=== PATIENT | female | born 1995 | race Caucasian/White ===

== ENCOUNTER 2018-07-31 15:35 | Observation (INO) ==
[2018-07-31 15:59] LABS: Basophils % 0.1 % (0.1-2.0); Eosinophils # 0.1 K/mm3 (0.0-0.4); Eosinophils % 0.8 % (0.1-12.0); Hematocrit 46.9 % (37.0-47.0); Hemoglobin 14.3 g/dL (12.2-16.2); Lymphocytes # 1.4 K/mm3 (0.7-4.5); Lymphocytes % 11.1 % (10-50); Mean Corpuscular HGB Conc 30.6 g/dL (31.8-35.4); Mean Corpuscular Hemoglobin 29.5 pg (27.0-31.2); Mean Corpuscular Volume 96.6 fl (81-99); Mean Platelet Volume 10.3 fl (7.4-10.4); Monocytes # 0.4 K/mm3 (0.1-1.0); Monocytes % 3.3 % (1.7-9.3); Neutrophils # 10.3 K/mm3 (1.8-7.8); Neutrophils % 84.6 % (37.0-80.0); Platelet Count 150 K/mm3 (142-424); Red Blood Count 4.85 M/mm3 (4.20-5.40); Red Cell Distribution Width 13.9 % (11.5-17.5); White Blood Count 12.1 K/mm3 (4.8-10.8)
--- NOTE | 2018-07-31 16:08 | Emergency Department Note ---
ED Disposition Clinical Impression: Nausea & vomiting, Intractable nausea and vomiting Disposition: Still a Patient Condition on Discharge: Fair Instructions: DI for Diarrhea and Traveler's Diarrhea -- Adult, DI for Diarrhea and Traveler's Diarrhea -- Child, DI for Nausea -- Adult, DI for Nausea -- Child Referrals: Provider,Referral, [Primary Care Provider] - - Critical Care Critical Care Time: No Attestation: On 07/31/18, the high probability of a clinically significant, sudden or life threatening deterioration of the following system(s) required my full and direct attention, intervention and personal management. The time I documented below is in addition to time spent performing reported procedures but includes the following listed in this critical care notation. Medical Decision Making - Mundo Inquiry Pt receiving controlled substance: No Mundo was queried for this patient: No Vital Signs: 07/31/18 15:31 07/31/18 16:01 07/31/18 16:30 Temperature 98.7 F Temperature Source Oral Pulse Rate [Right Brachial] 73 80 76 Respiratory Rate 15 Blood Pressure [Right Arm] 93/60 L 98/69 L 106/74 L Blood Pressure Mean [Right Arm] 71 78 84 Blood Pressure Source [Right Arm] Automatic Cuff Automatic Cuff Blood Pressure Position [Right Arm] Sitting Supine 02 Sat by Pulse Oximetry 100 Oxygen Delivery Method Room Air - Lab Data Lab Results 07/31/18 15:39: WBC 12.1 H, RBC 4.85, Hgb 14.3, Hct 46.9, MCV 96.6, MCH 29.5, MCHC 30.6 L, RDW 13.9, Plt Count 150, MPV 10.3, Neut % (Auto) 84.6 H, Lymph % (Auto) 11.1, [facility] [facility] % (Auto) 3.3, Eos % (Auto) 0.8, Baso % (Auto) 0.1, Neut # (Auto) 10.3 H, Lymph # (Auto) 1.4, [facility] # (Auto) 0.4, Eos # (Auto) 0.1, Baso # (Auto) 0.0 07/31/18 15:39: Sodium 140, Potassium 3.9, Chloride 103, Carbon Dioxide 25, Anion Gap 15.9 H, BUN 10, Creatinine 0.79, Estimated Creat Clear 94, Estimated GFR 89, Est GFR ( Amer) 108, Glucose 118 H, Calcium 9.3, Total Bilirubin 0.6, AST 16, ALT 13, Alkaline Phosphatase 75, Total Protein 8.2, Albumin 4.6, Globulin 3.6 H, Albumin/Globulin Ratio 1.3, Amylase 66, Lipase 162 07/31/18 15:39: Serum HCG, Qual Negative 07/31/18 15:39: Troponin I < 0.02 07/31/18 15:39: D-Dimer < 100 07/31/18 15:39: B-Natriuretic Peptide 11 Result diagrams: 07/31/18 15:39 07/31/18 15:39 Orders (Tests/Meds): ED MEDICATIONS Generic Name Dose Route Start Last Admin Trade Name Freq PRN Reason Stop Dose Admin Sodium Chloride 1,000 mls @ 999 mls/hr 07/31/18 15:45 07/31/18 15:44 Sod Chlor 0.9% 1000ml Bag IV 07/31/18 16:45 999 mls/hr .Q1H1M DEZ Administration Discontinued Medications Generic Name Dose Route Start Last Admin Trade Name Freq PRN Reason Stop Dose Admin Belladonna Alkaloids 60 ml 07/31/18 16:03 07/31/18 17:01 Gi Cocktail 60ml Udc PO 07/31/18 16:04 60 ml ONCE ONE Administration Famotidine 20 mg 07/31/18 16:03 07/31/18 16:58 Pepcid 20mg/2ml Vial IV 07/31/18 16:04 20 mg ONCE ONE Administration Ondansetron HCl 4 mg 07/31/18 15:42 07/31/18 15:44 Zofran 4mg/2ml Vial IV 07/31/18 15:43 4 mg ONCE ONE Administration Promethazine HCl 12.5 mg 07/31/18 16:03 07/31/18 16:58 Phenergan 25mg/Ml 1ml Vial IV 07/31/18 16:04 12.5 mg ONCE ONE Administration Sodium Chloride 25 ml 07/31/18 16:03 07/31/18 16:59 Sod Chlor 0.9% 25ml Bag IV 07/31/18 16:04 25 ml ONCE ONE Administration ORDERS Category Date Time Status Acute abdomen XR series [XR acute abdomen series] Stat Exams 07/31/18 16:04 Taken Urinalysis and Microscopic Stat Lab 12/15/18 15:42 Ordered - Radiology Data #1 Image(s): Chest, Abdomen Image Reviewed: Yes I reviewed the patient's radiology image Preliminary Findings: Normal/NAD Medical Decision Narrative: 1600 patient received Zofran but she continues to have dry heaving so she was given IVF Phenergan and Pepcid underwent acute abdomen series that was was within normal limits. The patient continued to be nauseous unable to tolerate p.o. intake including her GI cocktail I spoke with Dr. 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 Fang she admitted for intractable nausea vomiting n.p.o. IV fluids and antiemetics.. Nausea/Vomiting/Diarrhea HPI - General Chief complaint: Nausea/Vomiting/Diarrhea Stated complaint: n/v/d Time Seen by Provider: 07/31/18 15:35 Mode of Arrival: EMS Limitations: No Limitations Description of Symptoms (Recalled from ER Triage Doc. 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 denied eating anything - History of Present Illness HPI Narrative: 22 years old white female smoker status post tubal ligation who developed sudden onset vomiting at 10 AM today. She denies having fever chills hematemesis coffee-ground emesis melanotic stool or bleeding per rectum. She denies having dysuria hematuria or frequency. She denies having diarrhea. Patient complains of a burning sensation across her chest is worse with vomiting and abdominal cramps during vomiting. Patient denies other family members were the same symptoms. She has 2 children. MD complaint: nausea, vomiting Onset (ago): hour(s) (7 hours.) Description of Vomiting: other (She is heaving in the ED with mucus-like material. ) Associated Abdominal Pain: No Quality: cramping Consistency: intermittent Relieving factors: other (Not vomiting) Exacerbating factors: vomiting Associated symptoms: nausea/vomiting, shortness of breath - Related Data Previous Rx's Medication Instructions Recorded Clindamycin HCl [Cleocin HCl] 150 mg PO Q6 #20 capsule 07/01/18 Ibuprofen [Ibuprofen 600mg Tab] 600 mg PO Q6HP PRN #20 tab 07/01/18 Allergies Allergy/AdvReac Type Severity Reaction Status Date / Time amoxicillin [AMOXICILLIN] Allergy Unknown Verified 07/01/18 12:28 [facility] History - Hepatitis A Screen Drug use history?: No High risk sexual behaviors?: No History of sexually transmitted infection?: No Currently employed?: No Childcare worker?: No Do you have indoor plumbing?: No Do you have electricity?: Yes Attestation statement:: This patient has been screened for Hepatitis A risk factors. - Social History Educational Level: Completed High School Smoking Status: Current every day smoker Tobacco Type: cigarettes Alcohol Intake: never Alcohol Intake Frequency:: holidays/special occasions only - Psychiatric History Expresses thoughts of harming self/others: None Suicide Plan Description: No Plan ROS Obtained: Yes All systems reviewed & no additional complaints Physical Exam - General General appearance: alert, in no apparent distress - Head Head exam: atraumatic, normocephalic, normal inspection - Eye Eye exam: Present: normal appearance, PERRL, EOMI - ENT ENT exam: Present: normal exam, normal oropharynx, mucous membranes moist, TM's normal bilaterally, normal external ear exam - Neck Neck exam: Present: normal inspection, full ROM, trachea midline. Absent: tenderness, meningismus, lymphadenopathy - Chest Chest inspection: Present: normal inspection, symmetric chest wall rise. Absent: tenderness - Respiratory Respiratory exam: Present: normal lung sounds bilaterally. Absent: respiratory distress, wheezes - Cardiovascular Cardiovascular exam: Present: regular rate, normal rhythm, normal heart sounds. Absent: JVD - Abdominal Exam Abdominal exam: Present: soft, tenderness, rigidity, normal bowel sounds, other (Mild diffuse abdominal tenderness with palpable cordlike structure along the colonic anatomical course and voluntary guarding. No focal tenderness no rebound or cross tenderness. ). Absent: distention, guarding, rebound, Giron's sign, tenderness at McBurney's Point - External exam: Present: normal external exam - Extremities Exam Extremities exam: Present: normal inspection, full ROM, normal capillary refill, other (Equal strong bilateral femoral pulse. ). Absent: tenderness, pedal edema, calf tenderness - Back Exam Back exam: Present: normal inspection. Absent: tenderness, CVA tenderness (R), CVA tenderness (L) - Neurological Exam Neurological exam: Present: alert, oriented X3, CN II-XII intact, motor sensory deficit, reflexes normal - Psychiatric Psychiatric exam: Present: normal affect, normal mood - Skin Skin exam: Present: warm, dry, intact, normal color - Lymphatic Lymphatic Findings: no adenopathy
[2018-07-31 16:09] LABS: Albumin Level 4.6 gm/dL (3.4-5.0); Albumin/Globulin Ratio 1.3 (1.1-1.8); Anion Gap 15.9 mEq/L (5-15); Bilirubin,Total 0.6 mg/dL (0.2-1.0); Calcium 9.3 mg/dL (8.5-10.1); Globulin 3.6 gm/dl (1.3-3.2); Potassium 3.9 mmoL/L (3.5-5.1); Total Protein,Serum 8.2 gm/dL (6.4-8.2)
[2018-08-01 06:41] LABS: Eosinophils % 0.4 % (0.1-12.0); Lymphocytes % 15.4 % (10-50); Mean Corpuscular HGB Conc 31.9 g/dL (31.8-35.4); Mean Corpuscular Hemoglobin 30.2 pg (27.0-31.2); Mean Corpuscular Volume 94.6 fl (81-99); Mean Platelet Volume 10.9 fl (7.4-10.4); Monocytes # 0.3 K/mm3 (0.1-1.0); Monocytes % 4.2 % (1.7-9.3); Neutrophils # 4.9 K/mm3 (1.8-7.8); Neutrophils % 79.9 % (37.0-80.0); Platelet Count 136 K/mm3 (142-424); Red Blood Count 4.02 M/mm3 (4.20-5.40); Red Cell Distribution Width 13.9 % (11.5-17.5); White Blood Count 6.1 K/mm3 (4.8-10.8)
[2018-08-01 06:46] LABS: Hemoglobin 12.1 g/dL (12.2-16.2)
[2018-08-01 06:53] LABS: Anion Gap 12.6 mEq/L (5-15); Potassium 3.6 mmoL/L (3.5-5.1)
[2018-08-01 06:59] LABS: Calcium 8.3 mg/dL (8.5-10.1)
--- NOTE | 2018-08-01 07:32 | H&P/Discharge Summary ---
General - General Admission date:: 07/31/18 Discharge date: 08/01/18 *Admission Date: 07/31/18 *Chief complaint: Vomiting *History of present illness: 22-year-old female who began vomiting yesterday afternoon with her last meal being hamburger and Indonesian fries. Family is not ill. Patient denies sick contacts. Upon presenting to the emergency department she had frequent vomiting and retching and despite use of antiemetics and fluids in the emergency department retching persisted. Patient was admitted for observation and IV fluids with treatment of intravenous antiemetics. She denies fevers or chills. She has not had any diarrhea. Her biggest complaint is discomfort in the chest from frequent vomiting [facility] History I have reviewed the patient's past medical history: Yes Other Surgeries: Yes: Tubal Ligation Amputation: No - *Social History Educational Level: Completed High School Smoking Status: Current every day smoker Tobacco Type: cigarettes Alcohol Intake: current Alcohol Intake Frequency:: holidays/special occasions only Occupational Status: employed - Psychiatric History Expresses thoughts of harming self/others: None Suicide Plan Description: No Plan *Family Hx:: No significant family history Review of Systems - Review of Systems Review of systems:: pertinent systems reviewed and negative unless documented below - Constitutional Denies body ache(s), Denies chills, Denies fever(s) - *Cardiovascular Denies chest pain at rest - *Respiratory Denies chest congestion, Denies cough, Denies shortness of breath - *Gastrointestinal Reports abdominal pain, Reports cramping, Reports heartburn, Reports vomiting, Denies coffee ground vomit, Denies vomiting blood - *Musculoskeletal Denies joint pain Exam Vital signs and Labs for Last 24 Hours: Temp Pulse Resp BP Pulse Ox 98.3 F 75 16 113/57 L 98 08/01/18 03:54 08/01/18 03:54 08/01/18 03:54 08/01/18 03:54 08/01/18 03:54 Laboratory Results - last 24 hr 07/31/18 15:39: WBC 12.1 H, RBC 4.85, Hgb 14.3, Hct 46.9, MCV 96.6, MCH 29.5, MCHC 30.6 L, RDW 13.9, Plt Count 150, MPV 10.3, Neut % (Auto) 84.6 H, Lymph % (Auto) 11.1, Craig % (Auto) 3.3, Eos % (Auto) 0.8, Baso % (Auto) 0.1, Neut # (Auto) 10.3 H, Lymph # (Auto) 1.4, Craig # (Auto) 0.4, Eos # (Auto) 0.1, Baso # (Auto) 0.0 07/31/18 15:39: Sodium 140, Potassium 3.9, Chloride 103, Carbon Dioxide 25, Anion Gap 15.9 H, BUN 10, Creatinine 0.79, Estimated Creat Clear 94, Estimated GFR 89, Est GFR ( Amer) 108, Glucose 118 H, Calcium 9.3, Total Bilirubin 0.6, AST 16, ALT 13, Alkaline Phosphatase 75, Total Protein 8.2, Albumin 4.6, Globulin 3.6 H, Albumin/Globulin Ratio 1.3, Amylase 66, Lipase 162 07/31/18 15:39: Serum HCG, Qual Negative 07/31/18 15:39: Troponin I < 0.02 07/31/18 15:39: D-Dimer < 100 07/31/18 15:39: B-Natriuretic Peptide 11 08/01/18 06:22: WBC 6.1 D, RBC 4.02 L, Hgb 12.1 L D, Hct 38.0, MCV 94.6, MCH 30.2, MCHC 31.9, RDW 13.9, Plt Count 136 L, MPV 10.9 H, Neut % (Auto) 79.9, Lymph % (Auto) 15.4, Craig % (Auto) 4.2, Eos % (Auto) 0.4, Baso % (Auto) 0.0 L, Neut # (Auto) 4.9, Lymph # (Auto) 1.0, Craig # (Auto) 0.3, Eos # (Auto) 0.0, Baso # (Auto) 0.0 08/01/18 06:22: Sodium 139, Potassium 3.6, Chloride 106, Carbon Dioxide 24, Anion Gap 12.6, BUN 6 L D, Creatinine 0.62 D, Estimated Creat Clear 112, Estimated GFR 118, Est GFR ( Amer) 143 D, Glucose 150 H D, Calcium 8.3 L D I & O for Last 24 hours: Intake & Output 12/13/07/30/18 07/31/18 08/01/18 11:59 11:59 11:59 11:59 Intake Total 1169 / 1169 Output Total 250 / 250 Balance 919 / 919 Weight 111 lb 7 oz Narrative: Patient is awake and alert. She is in no distress. Oropharynx is moist. Lungs are clear to auscultation. Heart has a regular rate and rhythm. Chest is nontender to palpation along the costochondral junctions. Abdomen is soft, nontender, nondistended. Bowel sounds are present. Patient has active range of motion in all extremities and no neurologic Hospital Course Hospital Course: As per our and given both Zofran and Phenergan as an antiemetic. Patient felt like Zofran was ineffective and while Phenergan mostly just made her drowsy and sleepy she at least did not vomit while she was asleep. On the morning of the diet was advanced to clear liquids. Patient was given IV Protonix and a GI cocktail for acid reflux type symptoms. When she was tolerating liquids patient was discharged to home. Results Labs on day of discharge: Labs from last 24 hours 08/01/18 08/01/18 07/31/18 06:22 06:22 15:39 WBC 6.1 D RBC 4.02 L Hgb 12.1 L D Hct 38.0 MCV 94.6 MCH 30.2 MCHC 31.9 RDW 13.9 Plt Count 136 L MPV 10.9 H Neut % (Auto) 79.9 Lymph % (Auto) 15.4 Craig % (Auto) 4.2 Eos % (Auto) 0.4 Baso % (Auto) 0.0 L Neut # (Auto) 4.9 Lymph # (Auto) 1.0 Craig # (Auto) 0.3 Eos # (Auto) 0.0 Baso # (Auto) 0.0 D-Dimer Sodium 139 Potassium 3.6 Chloride 106 Carbon Dioxide 24 Anion Gap 12.6 BUN 6 L D Creatinine 0.62 D Estimated Creat Clear 112 Estimated GFR 118 Est GFR ( Amer) 143 D Glucose 150 H D Calcium 8.3 L D Total Bilirubin AST ALT Alkaline Phosphatase Troponin I B-Natriuretic Peptide 11 Total Protein Albumin Globulin Albumin/Globulin Ratio Amylase Lipase Serum HCG, Qual 07/31/18 07/31/18 07/31/18 15:39 15:39 15:39 WBC RBC Hgb Hct MCV MCH MCHC RDW Plt Count MPV Neut % (Auto) Lymph % (Auto) Craig % (Auto) Eos % (Auto) Baso % (Auto) Neut # (Auto) Lymph # (Auto) Craig # (Auto) Eos # (Auto) Baso # (Auto) D-Dimer < 100 Sodium Potassium Chloride Carbon Dioxide Anion Gap BUN Creatinine Estimated Creat Clear Estimated GFR Est GFR ( Amer) Glucose Calcium Total Bilirubin AST ALT Alkaline Phosphatase Troponin I < 0.02 B-Natriuretic Peptide Total Protein Albumin Globulin Albumin/Globulin Ratio Amylase Lipase Serum HCG, Qual Negative 07/31/18 07/31/18 15:39 15:39 WBC 12.1 H RBC 4.85 Hgb 14.3 Hct 46.9 MCV 96.6 MCH 29.5 MCHC 30.6 L RDW 13.9 Plt Count 150 MPV 10.3 Neut % (Auto) 84.6 H Lymph % (Auto) 11.1 Craig % (Auto) 3.3 Eos % (Auto) 0.8 Baso % (Auto) 0.1 Neut # (Auto) 10.3 H Lymph # (Auto) 1.4 Craig # (Auto) 0.4 Eos # (Auto) 0.1 Baso # (Auto) 0.0 D-Dimer Sodium 140 Potassium 3.9 Chloride 103 Carbon Dioxide 25 Anion Gap 15.9 H BUN 10 Creatinine 0.79 Estimated Creat Clear 94 Estimated GFR 89 Est GFR ( Amer) 108 Glucose 118 H Calcium 9.3 Total Bilirubin 0.6 AST 16 ALT 13 Alkaline Phosphatase 75 Troponin I B-Natriuretic Peptide Total Protein 8.2 Albumin 4.6 Globulin 3.6 H Albumin/Globulin Ratio 1.3 Amylase 66 Lipase 162 Serum HCG, Qual Discharge Medications - Medications for Discharge Home Medication List at Discharge: No Action No Known Home Medications Disposition Disposition: Home, Self-Care
--- NOTE | 2018-08-01 15:33 | Pharmacy Consult Notes ---
[facility] Pharmacy VTE Monitoring - Patient Demographics Admission date: 07/31/18 Report Date: 08/01/18 Time: 15:33 Allergies/Adverse Reactions: Patient Allergies amoxicillin [AMOXICILLIN] Allergy (Unknown, Verified 07/01/18 12:28) Height: 1.65 m Weight: 50.547 kg Patient Problems: Current Active Problems Nausea & vomiting (Acute) Intractable nausea and vomiting (Acute) - VTE Risk Labs: VTE Related Lab Results Hgb 12.1 g/dL (12.2-16.2) L D 08/01/18 06:22 Hct 38.0 % (37.0-47.0) 08/01/18 06:22 Plt Count 136 K/mm3 (142-424) L 08/01/18 06:22 BUN 6 mg/dL (7-18) L D 08/01/18 06:22 Creatinine 0.62 mg/dL (0.55-1.02) D 08/01/18 06:22 Estimated Creat Clear 112 mL/min (50-200) 08/01/18 06:22 Was VTE Risk Assessment Performed: Yes VTE Score: 0 VTE Risk Level: Very Low Risk - Prophylaxis VTE Prophylaxis Ordered?: Yes Types of VTE Prophylaxis: TEDS Knee High Location of Applied Device: Bilateral Lower Extremeties
[2018-08-01 15:46] LABS: Microscopic, Urine URINE MICROSCOPIC (MICROSCOPIC)
[2018-08-01 15:47] LABS: Appearance,Urine SL CLOUDY (Clear); Bilirubin,Urine Negative (Negative); Blood, Urine Negative (Negative); Color,Urine YELLOW (Yellow); Glucose,Urine (UA) Negative (Negative); Ketones,Urine 1+ (Negative); Leukocyte Esterase,Urine Negative (Negative); Protein,Urine Negative (Negative); Urobilinogen,Urine 0.2 EU/dl (0.2)
[2018-08-01 15:55] LABS: Bacteria,Urine 2+ /lpf; Mucus,Urine 3+ /lpf
== END 2018-08-01 18:32 | disposition home or self-care (01) ==
LOC: ER 15:35 → 2ND 15:35
PROVIDERS: ADMIT Family Medicine; ATTEND Internal Medicine Adolescent Medicine

== ENCOUNTER 2018-09-21 13:28 | Observation (INO) ==
[2018-09-21 14:05] LABS: Basophils % 0.2 % (0.1-2.0); Eosinophils % 0.1 % (0.1-12.0); Hematocrit 44.5 % (37.0-47.0); Hemoglobin 14.2 g/dL (12.2-16.2); Lymphocytes # 1.6 K/mm3 (0.7-4.5); Lymphocytes % 12.4 % (10-50); Mean Corpuscular HGB Conc 31.9 g/dL (31.8-35.4); Mean Corpuscular Hemoglobin 30.6 pg (27.0-31.2); Mean Corpuscular Volume 95.9 fl (81-99); Mean Platelet Volume 9.7 fl (7.4-10.4); Monocytes # 0.3 K/mm3 (0.1-1.0); Monocytes % 2.2 % (1.7-9.3); Neutrophils # 10.8 K/mm3 (1.8-7.8); Neutrophils % 85.2 % (37.0-80.0); Platelet Count 246 K/mm3 (142-424); Red Blood Count 4.65 M/mm3 (4.20-5.40); Red Cell Distribution Width 14.5 % (11.5-17.5); White Blood Count 12.7 K/mm3 (4.8-10.8)
--- NOTE | 2018-09-21 14:10 | Emergency Department Note ---
ED Disposition Clinical Impression: Abdominal pain, generalized Vomiting Qualifiers: Vomiting type: unspecified Vomiting Intractability: intractable Nausea presence: with nausea Qualified Code(s): R11.2 - Nausea with vomiting, unspecified Disposition: Admitted as Observation Condition on Discharge: Fair Referrals: Provider,Referral, [Primary Care Provider] - - Critical Care Critical Care Time: No Attestation: On 09/21/18, the high probability of a clinically significant, sudden or life threatening deterioration of the following system(s) required my full and direct attention, intervention and personal management. The time I documented below is in addition to time spent performing reported procedures but includes the following listed in this critical care notation. Medical Decision Making - Mundo Inquiry Pt receiving controlled substance: No Vital Signs: 09/21/18 13:52 Temperature 97.5 F L Temperature Source Oral Pulse Rate [Right Brachial] 89 Respiratory Rate 17 Blood Pressure [Right Arm] 102/69 L Blood Pressure Mean [Right Arm] 80 Blood Pressure Source [Right Arm] Automatic Cuff Blood Pressure Position [Right Arm] Sitting 02 Sat by Pulse Oximetry 98 Oxygen Delivery Method Room Air - Lab Data Lab Results 09/21/18 14:00: WBC 12.7 H, RBC 4.65, Hgb 14.2, Hct 44.5, MCV 95.9, MCH 30.6, MCHC 31.9, RDW 14.5, Plt Count 246, MPV 9.7, Neut % (Auto) 85.2 H, Lymph % (Aut o) 12.4, [place] % (Auto) 2.2, Eos % (Auto) 0.1, Baso % (Auto) 0.2, Neut # (Auto) 10.8 H, Lymph # (Auto) 1.6, [place] # (Auto) 0.3, Eos # (Auto) 0.0, Baso # (Auto) 0.0, Total Counted 100, Neutrophils % (Manual) 86 H, Lymphocytes % (Manual) 11, Monocytes % (Manual) 3, Platelet Estimate Normal, RBC Morphology Normal 09/21/18 14:00: Sodium 143, Potassium 3.9, Chloride 102, Carbon Dioxide 29, Anion Gap 15.9 H, BUN 13, Creatinine 0.73, Estimated Creat Clear 94, Estimated GFR 98, Est GFR ( Amer) 119, Glucose 143 H, Calcium 9.2, Total Bilirubin 0.3, AST 8 L, ALT 13, Alkaline Phosphatase 71, Total Protein 8.2, Albumin 4.6, Globulin 3.6 H, Albumin/Globulin Ratio 1.3, Amylase 55, Lipase 125 09/21/18 14:00: Serum HCG, Qual Negative Result diagrams: 09/21/18 14:00 09/21/18 14:00 Orders (Tests/Meds): ED MEDICATIONS Generic Name Dose Route Start Last Admin Trade Name Freq PRN Reason Stop Dose Admin Sodium Chloride 1,000 mls @ 999 mls/hr 09/21/18 16:15 09/21/18 16:15 Sod Chlor 0.9% 1000ml Bag IV 09/21/18 17:15 999 mls/hr .Q1H1M DEZ Administration Discontinued Medications Generic Name Dose Route Start Last Admin Trade Name Freq PRN Reason Stop Dose Admin Famotidine 20 mg 09/21/18 14:33 09/21/18 15:24 Pepcid 20mg/2ml Vial IV 09/21/18 14:34 20 mg ONCE ONE Administration Sodium Chloride 1,000 mls @ 999 mls/hr 09/21/18 14:00 09/21/18 13:56 Sod Chlor 0.9% 1000ml Bag IV 09/21/18 15:00 999 mls/hr .Q1H1M DEZ Administration Ketorolac Tromethamine 30 mg 09/21/18 13:54 09/21/18 13:56 Toradol 30mg/Ml Vial IV 09/21/18 13:55 30 mg ONCE ONE Administration Ondansetron HCl 4 mg 09/21/18 13:54 09/21/18 13:56 Zofran 4mg/2ml Vial IV 09/21/18 13:55 4 mg ONCE ONE Administration Promethazine HCl 12.5 mg 09/21/18 14:24 09/21/18 14:27 Phenergan 25mg/Ml 1ml Vial IV 09/21/18 14:25 12.5 mg ONCE ONE Administration Promethazine HCl 12.5 mg 09/21/18 14:33 09/21/18 15:06 Phenergan 25mg/Ml 1ml Vial IV 09/21/18 14:34 12.5 mg ONCE ONE Administration Sodium Chloride 25 ml 09/21/18 14:24 09/21/18 14:27 Sod Chlor 0.9% 25ml Bag IV 09/21/18 14:25 25 ml ONCE ONE Administration Sodium Chloride 25 ml 09/21/18 14:33 09/21/18 15:06 Sod Chlor 0.9% 25ml Bag IV 09/21/18 14:34 25 ml ONCE ONE Administration Sodium Chloride 10 ml 09/21/18 15:28 09/21/18 15:29 Rad-Saline Flush 10ml Syringe IV 09/21/18 15:29 10 ml ONCE ONE Administration ORDERS Category Date Time Status Drug Screen,Urine Stat Lab 09/21/18 15:13 Ordered Urinalysis and Microscopic Stat Lab 09/21/18 13:54 Ordered - CT Data CT Scan: Abdomen, Pelvis Time Received: 15:[address] Reviewed: Yes: I have viewed the radiologist's interpretation Findings Narrative: IMPRESSION: 1. Possible ruptured right ovarian cyst with a small amount fluid in the pelvis. 2. Otherwise negative. Dictated By: Blayne Salas MD Signed By: <Electronically signed by Blayne Salas MD in OV> 09/21/18 1550 - US Data US Images: Gallbladder ED US Reviewed: Yes: I have viewed radiologist's interpretation Preliminary Findings: Normal/NAD - Physician Consults Physician Consulted: Pacheco Time: 16:30 Reason -: Admission Comment/Response: Agrees to admit the patient to the hospital. We discussed the patient's clinical information, including history, exam, laboratory and radiology results and ED course. Per hospital procedure, I will write temporary bridge inpatient orders on the patient. Specific orders requested by the admitting physician: Continue IV fluids and antiemetics - Reevaluation(s) Time: 16:00 Reevaluation #1: States no change in condition, no improvement. Has not yet urinated. General Adult HPI - General Chief complaint: Nausea/Vomiting/Diarrhea Stated complaint: vomiting weak Time Seen by Provider: 09/21/18 14:10 Mode of Arrival: Ambulatory Limitations: No Limitations Description of Symptoms (Recalled from ER Triage Doc. by RN): ABD PAIN AND VOMITING SINCE THIS MORNING; STATES THAT SHE HAS THIS OCCUR APPROX ONCE A MONTH, AND DESPITE TESTING NO ONE CAN FIND OUT WHAT'S WRONG WITH HER; ADDITIONALLY STATES SHE IS USUALLY ADMITTED - History of Present Illness HPI narrative: Complains of generalized abdominal pain and vomiting that started this morning. Denies fever or diarrhea. States this is been a recurrent problem for about 2 years. She says she has had previous evaluations, but does not remember what tests have been done. Does not remember scans or ultrasounds. She has been to this emergency room twice before, July 01 and July 31. On July [address] scan of her abdomen in the emergency department along with typical abdominal pain workup and was discharged. On July 31 she was admitted overnight. Patient says she recently moved to this area about a year ago. She was previously living in [place] and says that she had been to the emergency room there previously but had not been admitted. States that she has a previous history of endometriosis. She has had surgery to burn the endometriosis and has had a tubal ligation. Denies previous abdominal surgeries otherwise. She has Phenergan at home, took it today, but it did not help at all. - Related Data Previous Rx's Medication Instructions Recorded Promethazine HCl [Phenergan 25mg 25 mg PO Q6HP PRN #20 tablet 08/01/18 tab] Allergies Allergy/AdvReac Type Severity Reaction Status Date / Time amoxicillin [AMOXICILLIN] Allergy Unknown Verified 07/01/18 12:28 [facility] History - Hepatitis A Screen Drug use history?: No High risk sexual behaviors?: No History of sexually transmitted infection?: No Currently employed?: No Childcare worker?: No Do you have indoor plumbing?: Yes Do you have electricity?: Yes Attestation statement:: This patient has been screened for Hepatitis A risk factors. I have reviewed the patient's past medical history: Yes Other Surgeries: Yes: Tubal Ligation Amputation: No - Social History Educational Level: Completed High School Smoking Status: Unknown if ever smoked Tobacco Type: cigarettes Alcohol Intake: never Alcohol Intake Frequency:: holidays/special occasions only Occupational Status: employed - Psychiatric History Expresses thoughts of harming self/others: None Suicide Plan Description: No Plan Family Hx:: No significant family history ROS Obtained: Yes All systems reviewed & no additional complaints - Constitutional Constitutional: Denies fever(s), Denies weight loss - Gastrointestinal Gastrointestingal: Reports: abdominal pain, vomiting. Denies: diarrhea Physical Exam - General General appearance: alert Comment: Pale. Lips dry. - Head Head exam: atraumatic, normocephalic - Eye Eye exam: Present: normal appearance, PERRL, EOMI - ENT ENT exam: Present: mucous membranes dry - Neck Neck exam: Present: normal inspection, full ROM, trachea midline - Chest Chest inspection: Present: normal inspection, symmetric chest wall rise - Respiratory Respiratory exam: Present: normal lung sounds bilaterally. Absent: respiratory distress - Cardiovascular Cardiovascular exam: Present: regular rate, normal rhythm, normal heart sounds - Abdominal Exam Abdominal exam: Present: soft, tenderness (Generalized, but most tender in right upper quadrant), other (Scaphoid). Absent: distention, guarding, rebound, rigidity - Extremities Exam Extremities exam: Present: normal inspection, full ROM - Neurological Exam Neurological exam: Present: alert, oriented X3 - Psychiatric Psychiatric exam: Present: flat affect - Skin Skin exam: Present: warm, dry
[2018-09-21 14:17] LABS: Lymphocytes % 11 % (10-50); Monocytes % 3 % (2-9); Neutrophils % 86 % (42-76); RBC Morphology Normal; Total Cells Counted 100
[2018-09-21 14:18] LABS: Albumin Level 4.6 gm/dL (3.4-5.0); Albumin/Globulin Ratio 1.3 (1.1-1.8); Anion Gap 15.9 mEq/L (5-15); Bilirubin,Total 0.3 mg/dL (0.2-1.0); Calcium 9.2 mg/dL (8.5-10.1); Globulin 3.6 gm/dl (1.3-3.2); Potassium 3.9 mmoL/L (3.5-5.1); Total Protein,Serum 8.2 gm/dL (6.4-8.2)
--- NOTE | 2018-09-21 17:34 | History & Physical Report ---
*Admission Date: 09/21/18 *Chief complaint: Nausea and vomiting *History of present illness: Whit is a 22-year-old female with history of repeated episodes of nausea and vomiting seen twice over the past 3 months for similar presentation. She reports she began to have abdominal pain and vomiting starting this morning. Has been worked up significantly in the past with no specific diagnosis. Despite antiemetics and fluids in the ER, she has continued to have retching and nausea. Patient necessitating admission due to inability to keep down p.o. fluids. C/o generalized abdominal pain. Denies fever or diarrhea. States this is been a recurrent problem for about 2 years, since having her 17mo child. She says she has had previous evaluations, but does not remember what tests have been done. Does not remember scans or ultrasounds. She has been to this emergency room twice before, July 01 and July 31. On July [address] scan of her abdomen in the emergency department along with typical abdominal pain workup and was discharged. On July 31 she was admitted overnight. States that she has a previous history of endometriosis. She has had surgery to burn the endometriosis and has had a tubal ligation. Denies previous abdominal surgeries otherwise. She took Phenergan at home this morning with no benefit. Denies fever, chest pain, shortness of breath, confusion, diarrhea. [facility] History Medical History: Reports:: Asthma Have you ever received a pneumonia vaccine?: No Have you received a flu vaccine this season?: No Other Surgeries: Yes: Tubal Ligation Amputation: No - *Social History Educational Level: Completed High School Smoking Status: Unknown if ever smoked Tobacco Type: cigarettes Alcohol Intake: never Alcohol Intake Frequency:: holidays/special occasions only Occupational Status: employed Travel in the last 8 weeks: None - Psychiatric History Expresses thoughts of harming self/others: None Suicide Plan Description: No Plan *Family Hx:: No significant family history Review of Systems - Review of Systems Review of systems:: pertinent systems reviewed and negative unless documented below Meds Home Medications Medication Instructions Recorded Confirmed Type No Known Home Medications 09/21/18 09/21/18 History Allergies Allergy/AdvReac Type Severity Reaction Status Date / Time amoxicillin [AMOXICILLIN] Allergy Unknown Verified 07/01/18 12:28 Exam Vital signs and Labs for Last 24 Hours: Temp Pulse Resp BP Pulse Ox 97.5 F L 89 17 102/69 L 98 09/21/18 13:52 09/21/18 13:52 09/21/18 13:52 09/21/18 13:52 09/21/18 13:52 Laboratory Results - last 24 hr 09/21/18 14:00: WBC 12.7 H, RBC 4.65, Hgb 14.2, Hct 44.5, MCV 95.9, MCH 30.6, MCHC 31.9, RDW 14.5, Plt Count 246, MPV 9.7, Neut % (Auto) 85.2 H, Lymph % (Auto) 12.4, [place] % (Auto) 2.2, Eos % (Auto) 0.1, Baso % (Auto) 0.2, Neut # (Auto) 10.8 H, Lymph # (Auto) 1.6, [place] # (Auto) 0.3, Eos # (Auto) 0.0, Baso # (Auto) 0.0, Total Counted 100, Neutrophils % (Manual) 86 H, Lymphocytes % (Manual) 11, Monocytes % (Manual) 3, Platelet Estimate Normal, RBC Morphology Normal 09/21/18 14:00: Sodium 143, Potassium 3.9, Chloride 102, Carbon Dioxide 29, Anion Gap 15.9 H, BUN 13, Creatinine 0.73, Estimated Creat Clear 94, Estimated GFR 98, Est GFR ( Amer) 119, Glucose 143 H, Calcium 9.2, Total Bilirubin 0.3, AST 8 L, ALT 13, Alkaline Phosphatase 71, Total Protein 8.2, Albumin 4.6, Globulin 3.6 H, Albumin/Globulin Ratio 1.3, Amylase 55, Lipase 125 09/21/18 14:00: Serum HCG, Qual Negative I & O for Last 24 hours: Intake & Output 09/18/18 09/19/18 09/20/18 09/21/18 23:59 23:59 23:59 23:59 Weight 49.895 kg - Constitutional mild distress, thin, cooperative - *Routine HEENT Exam Head: Present: normocephalic, atraumatic Eye: Present: EOMI, PERRL ENT: Present: mucous membranes moist - *Routine Neck Exam Present: supple, full ROM. Absent: JVD - *Routine Respiratory Exam Present: CTA bilaterally. Absent: prolonged expiratory phase, rales, wheezes - *Routine Cardiovascular Exam Present: RRR, Normal S1, Normal S2. Absent: murmur - *Routine Abdominal Exam Present: normoactive bowel sounds, tenderness (diffuse, non focal), guarding. Absent: rebound - *Routine Rectal Exam Patient deferred: visual exam - *Routine Exam Patient deferred: external exam - *Routine Extremities Exam Absent: cyanosis, clubbing, edema - *Routine Skin Exam Present: intact. Absent: cyanosis, erythema - *Routine Neurological Exam Present: alert, oriented X3. Absent: altered mental status Assessment and Plan (1) Abdominal pain, generalized Current visit: Yes Status: Acute Category: Medical Code(s): R10.84 - Generalized abdominal pain (2) Intractable nausea and vomiting Current visit: No Status: Acute Category: Medical Code(s): R11.2 - Nausea with vomiting, unspecified (3) Ovarian cyst Current visit: No Status: Acute Qualifiers: Laterality: right Qualified Code(s): N83.201 - Unspecified ovarian cyst, right side Category: Medical Code(s): N83.209 - Unspecified ovarian cyst, unspecified side - Assessment and plan all Dx Assessment and Plan for all problems:: 22yo F with intractable nausea and abdominal pain in monthly cyclic pattern. Administering IVF, Anti emetics PRN, and clear liquid diet as tolerated. Negative work-up in the past. Has generally improved within 24hrs in the past. Monitor for improvement overnight. Given Hx of endometriosis would benefit from outpatient follow-up with [facility] for further assessment.
[2018-09-22 01:24] LABS: Microscopic, Urine URINE MICROSCOPIC (MICROSCOPIC)
[2018-09-22 01:33] LABS: Appearance,Urine CLEAR (Clear); Bilirubin,Urine Negative (Negative); Blood, Urine Negative (Negative); Color,Urine YELLOW (Yellow); Glucose,Urine (UA) Negative (Negative); Ketones,Urine Negative (Negative); Leukocyte Esterase,Urine Negative (Negative); PH,Urine 8.5 (5.0-8.5); Protein,Urine TRACE (Negative); Urobilinogen,Urine 0.2 EU/dl (0.2)
[2018-09-22 01:42] LABS: Amphetamine/Metha Screen,Urine Negative ng/mL (<1000); Barbiturates Screen,Urine Negative ng/mL (<200); Benzodiazepines Screen,Urine Negative ng/mL (<200); Cannabinoid Screen,Urine Positive ng/mL (<50); Cocaine Screen,Urine Positive ng/mL (<300); Methadone Screen,Urine Negative ng/mL (<300); Opiate Screen,Urine Negative ng/mL (<300); Phencyclidine Screen,Urine Negative ng/mL (<25)
[2018-09-22 02:11] LABS: Bacteria,Urine 1+ /lpf
[2018-09-22 06:31] LABS: Eosinophils % 0.2 % (0.1-12.0); Lymphocytes # 1.5 K/mm3 (0.7-4.5); Lymphocytes % 17.1 % (10-50); Mean Corpuscular HGB Conc 32.9 g/dL (31.8-35.4); Mean Corpuscular Hemoglobin 31.6 pg (27.0-31.2); Mean Corpuscular Volume 95.8 fl (81-99); Mean Platelet Volume 10.2 fl (7.4-10.4); Monocytes # 0.4 K/mm3 (0.1-1.0); Neutrophils # 6.8 K/mm3 (1.8-7.8); Neutrophils % 77.8 % (37.0-80.0); Platelet Count 171 K/mm3 (142-424); Red Blood Count 3.86 M/mm3 (4.20-5.40); Red Cell Distribution Width 14.4 % (11.5-17.5); White Blood Count 8.8 K/mm3 (4.8-10.8)
[2018-09-22 06:39] LABS: Anion Gap 13.6 mEq/L (5-15); Calcium 8.7 mg/dL (8.5-10.1); Potassium 3.6 mmoL/L (3.5-5.1)
[2018-09-22 06:42] LABS: Hemoglobin 12.2 g/dL (12.2-16.2)
--- NOTE | 2018-09-22 08:26 | Pharmacy Consult Notes ---
[facility] Pharmacy VTE Monitoring - Patient Demographics Admission date: 09/22/18 Report Date: 09/22/18 Time: 08:26 Allergies/Adverse Reactions: Patient Allergies amoxicillin [AMOXICILLIN] Allergy (Unknown, Verified 07/01/18 12:28) Height: 1.68 m Weight: 48.137 kg Patient Problems: Current Active Problems Abdominal pain, generalized (Acute) Vomiting (Acute) - VTE Risk Labs: VTE Related Lab Results Hgb 12.2 g/dL (12.2-16.2) D 09/22/18 06:10 Hct 37.0 % (37.0-47.0) 09/22/18 06:10 Plt Count 171 K/mm3 (142-424) D 09/22/18 06:10 BUN 9 mg/dL (7-18) D 09/22/18 06:10 Creatinine 0.59 mg/dL (0.55-1.02) 09/22/18 06:10 Estimated Creat Clear 112 mL/min (50-200) 09/22/18 06:10 Was VTE Risk Assessment Performed: Yes VTE Score: 1 VTE Risk Level: Very Low Risk Clinical Trial Participant: No - Prophylaxis VTE Prophylaxis Ordered?: Yes Types of VTE Prophylaxis: TEDS Knee High
--- NOTE | 2018-09-22 08:54 | Progress Note ---
Internal Medicine - PN: Subj *Date: 09/22/18 *Time: 08:45 Interval history: Patient feels slightly better. She continues to complain of some bilious emesis and abdominal pain. She is slightly hungry. Exam Vital signs and Labs for Last 24 Hours: Temp Pulse Resp BP Pulse Ox 98.7 F 70 16 110/72 97 09/22/18 08:00 09/22/18 08:00 09/22/18 08:00 09/22/18 08:00 09/22/18 08:00 Laboratory Results - last 24 hr 09/21/18 14:00: WBC 12.7 H, RBC 4.65, Hgb 14.2, Hct 44.5, MCV 95.9, MCH 30.6, MCHC 31.9, RDW 14.5, Plt Count 246, MPV 9.7, Neut % (Auto) 85.2 H, Lymph % (Auto) 12.4, [place] % (Auto) 2.2, Eos % (Auto) 0.1, Baso % (Auto) 0.2, Neut # (Auto) 10.8 H, Lymph # (Auto) 1.6, [place] # (Auto) 0.3, Eos # (Auto) 0.0, Baso # (Auto) 0.0, Total Counted 100, Neutrophils % (Manual) 86 H, Lymphocytes % (Manual) 11, Monocytes % (Manual) 3, Platelet Estimate Normal, RBC Morphology Normal 09/21/18 14:00: Sodium 143, Potassium 3.9, Chloride 102, Carbon Dioxide 29, Anion Gap 15.9 H, BUN 13, Creatinine 0.73, Estimated Creat Clear 94, Estimated GFR 98, Est GFR ( Amer) 119, Glucose 143 H, Calcium 9.2, Total Bilirubin 0.3, AST 8 L, ALT 13, Alkaline Phosphatase 71, Total Protein 8.2, Albumin 4.6, Globulin 3.6 H, Albumin/Globulin Ratio 1.3, Amylase 55, Lipase 125 09/21/18 14:00: Serum HCG, Qual Negative 09/22/18 00:35: Urine Color Yellow, Urine Appearance Clear, Urine pH 8.5, Ur Specific [place] 1.010, Urine Protein Trace, Urine Glucose (UA) Negative, Urine Ketones Negative, Urine Blood Negative, Urine Nitrate Negative, Urine Bilirubin Negative, Urine Urobilinogen 0.2, Ur Leukocyte Esterase Negative, Urine RBC 3-5, Urine WBC 3-5, Ur Squamous Epith Cells 5-10, Urine Bacteria 1+ 09/22/18 00:35: Urine Opiates Screen Negative, Urine Methadone Screen Negative, Ur Barbituates Screen Negative, Ur Phencyclidine Scrn Negative, Ur Amphetamines Screen Negative, U Benzodiazepines Scrn Negative, Urine Cocaine Screen Positive H, U Marijuana (THC) Screen Positive H 09/22/18 06:10: WBC 8.8 D, RBC 3.86 L, Hgb 12.2 D, Hct 37.0, MCV 95.8, MCH 31.6 H, MCHC 32.9, RDW 14.4, Plt Count 171 D, MPV 10.2, Neut % (Auto) 77.8, Lymph % (Auto) 17.1, [place] % (Auto) 5.0, Eos % (Auto) 0.2, Baso % (Auto) 0.0 L, Neut # (Auto) 6.8, Lymph # (Auto) 1.5, [place] # (Auto) 0.4, Eos # (Auto) 0.0, Baso # (Auto) 0.0 09/22/18 06:10: Sodium 138, Potassium 3.6, Chloride 103, Carbon Dioxide 25, Anion Gap 13.6, BUN 9 D, Creatinine 0.59, Estimated Creat Clear 112, Estimated GFR 125, Est GFR ( Amer) 152 D, Glucose 106 D, Calcium 8.7 I & O for Last 24 hours: Intake & Output 09/19/18 09/20/18 09/21/18 09/22/18 11:59 11:59 11:59 11:59 Intake Total 1055 / 1055 Output Total 900 / 900 Balance 155 / 155 Weight 106 lb 2 oz Narrative: Patient is alert. Oriented. Lungs clear. Heart rate regular. No scleral icterus or jaundice. Abdomen is soft, minimally tender in the right middle and lower quadrant but no rebound or guarding. No extremity edema or clubbing. Assessment and Plan (1) Abdominal pain, generalized Current visit: Yes Status: Acute Category: Medical Code(s): R10.84 - Generalized abdominal pain (2) Intractable nausea and vomiting Current visit: No Status: Acute Category: Medical Code(s): R11.2 - Nausea with vomiting, unspecified (3) Ovarian cyst Current visit: No Status: Acute Qualifiers: Laterality: right Qualified Code(s): N83.201 - Unspecified ovarian cyst, r ight side Category: Medical Code(s): N83.209 - Unspecified ovarian cyst, unspecified side - Assessment and plan all Dx Assessment and Plan for all problems:: Patient seems to be slightly improved. We will give diet. Zofran and Toradol for pain control from cyst. Obviously multiple comorbidities with patient including cocaine and marijuana use that somewhat complicate her pain response issues. CT scan is reassuring.
--- NOTE | 2018-09-22 17:33 | Discharge Summary ---
General - General Admission date:: 09/21/18 Discharge date: 09/22/18 HPI HPI: Whit is a 22-year-old female with history of repeated episodes of nausea and vomiting seen twice over the past 3 months for similar presentation. She reports she began to have abdominal pain and vomiting starting this morning. Has been worked up significantly in the past with no specific diagnosis. Despite antiemetics and fluids in the ER, she has continued to have retching and nausea. Patient necessitating admission due to inability to keep down p.o. fluids. C/o generalized abdominal pain. Denies fever or diarrhea. States this is been a recurrent problem for about 2 years, since having her 17mo child. She says she has had previous evaluations, but does not remember what tests have been done. Does not remember scans or ultrasounds. She has been to this emergency room twice before, July 01 and July 31. On July [address] scan of her abdomen in the emergency department along with typical abdominal pain workup and was discharged. On July 31 she was admitted overnight. States that she has a previous history of endometriosis. She has had surgery to burn the endometriosis and has had a tubal ligation. Denies previous abdominal surgeries otherwise. She took Phenergan at home this morning with no benefit. Denies fever, chest pain, shortness of breath, confusion, diarrhea. Hospital Course Hospital Course: Patient was admitted, CT scan of abdomen showed nonsignificant findings except for the possibility of a ruptured right ovarian cyst. Patient was treated symptomatically with NSAIDs, Toradol intravenously specifically as well as anti- medics. She was changed from Phenergan to Zofran and this improved her cognition and also allowed her to eat a little bit better. This morning she was somewhat tender. By this evening her exam is improved. Minimal abdominal tenderness on exam, she was able to keep down clear liquids and she will be discharged home with antiemetics and naproxen. Objective Vital signs: Temp Pulse Resp BP Pulse Ox 98.7 F 69 14 120/75 100 09/22/18 16:12 09/22/18 16:12 09/22/18 16:12 09/22/18 16:12 09/22/18 16:12 Narrative: Patient is alert. Oriented x3. Appears much brighter than this morning. No scleral icterus, no jaundice. No stigmata of liver disease. Oropharynx moist, well hydrated, no JVD. Lungs clear. Heart rate regular without murmurs. Abdomen soft, very minimal tenderness, vastly improved. Soft and normal bowel sounds. No extremity edema or clubbing. Her neurologic exam is intact Results Labs on day of discharge: Labs from last 24 hours 09/22/18 09/22/18 09/22/18 06:10 06:10 00:35 WBC 8.8 D RBC 3.86 L Hgb 12.2 D Hct 37.0 MCV 95.8 MCH 31.6 H MCHC 32.9 RDW 14.4 Plt Count 171 D MPV 10.2 Neut % (Auto) 77.8 Lymph % (Auto) 17.1 [place] % (Auto) 5.0 Eos % (Auto) 0.2 Baso % (Auto) 0.0 L Neut # (Auto) 6.8 Lymph # (Auto) 1.5 [place] # (Auto) 0.4 Eos # (Auto) 0.0 Baso # (Auto) 0.0 Sodium 138 Potassium 3.6 Chloride 103 Carbon Dioxide 25 Anion Gap 13.6 BUN 9 D Creatinine 0.59 Estimated Creat Clear 112 Estimated GFR 125 Est GFR ( Amer) 152 D Glucose 106 D Calcium 8.7 Urine Color Urine Appearance Urine pH Ur Specific [place] Urine Protein Urine Glucose (UA) Urine Ketones Urine Blood Urine Nitrate Urine Bilirubin Urine Urobilinogen Ur Leukocyte Esterase Urine RBC Urine WBC Ur Squamous Epith Cells Urine Bacteria Urine Opiates Screen Negative Urine Methadone Screen Negative Ur Barbituates Screen Negative Ur Phencyclidine Scrn Negative Ur Amphetamines Screen Negative U Benzodiazepines Scrn Negative Urine Cocaine Screen Positive H U Marijuana (THC) Screen Positive H 09/22/18 00:35 WBC RBC Hgb Hct MCV MCH MCHC RDW Plt Count MPV Neut % (Auto) Lymph % (Auto) [place] % (Auto) Eos % (Auto) Baso % (Auto) Neut # (Auto) Lymph # (Auto) [place] # (Auto) Eos # (Auto) Baso # (Auto) Sodium Potassium Chloride Carbon Dioxide Anion Gap BUN Creatinine Estimated Creat Clear Estimated GFR Est GFR ( Amer) Glucose Calcium Urine Color Yellow Urine Appearance Clear Urine pH 8.5 Ur Specific [place] 1.010 Urine Protein Trace Urine Glucose (UA) Negative Urine Ketones Negative Urine Blood Negative Urine Nitrate Negative Urine Bilirubin Negative Urine Urobilinogen 0.2 Ur Leukocyte Esterase Negative Urine RBC 3-5 Urine WBC 3-5 Ur Squamous Epith Cells 5-10 Urine Bacteria 1+ Urine Opiates Screen Urine Methadone Screen Ur Barbituates Screen Ur Phencyclidine Scrn Ur Amphetamines Screen U Benzodiazepines Scrn Urine Cocaine Screen U Marijuana (THC) Screen DS: Diagnosis - Discharge Diagnosis (1) Abdominal pain, generalized Status: Acute (2) Intractable nausea and vomiting Status: Resolved (3) Ovarian cyst Status: Acute Discharge Plan - Patient Discharge Instructions ACTIVITY: Continue current activity DIET: continue same diet - Follow up Plan Follow up with: Viridiana Haskins APRN [Nurse Practitioner] - 09/24/18 Disposition: Home, Self-Fdc Medications: Home Medications Medication Instructions Recorded Confirmed Type Naproxen Sodium 275 mg PO BID #10 tablet 09/22/18 Rx Ondansetron HCl [Zofran 4mg Tab] 4 mg PO Q6HP PRN #15 tab 09/22/18 Rx Prescriptions/Medication Reconciliation: New Naproxen Sodium 275 mg PO BID #10 tablet Ondansetron HCl [Zofran 4mg Tab] 4 mg PO Q6HP PRN #15 tab PRN Reason: Nausea
== END 2018-09-22 18:41 | disposition home or self-care (01) ==
LOC: ER 13:28 → 2ND 13:28 → OB 21:28
PROVIDERS: ADMIT Internal Medicine Adolescent Medicine; ATTEND Internal Medicine Adolescent Medicine
DX: N83.201 Unspecified ovarian cyst, right side
CPT/HCPCS: 36415; 74177; 76705; 80048; 80053; 80305; 81001; 82150; 83690; 84703; 85007; 85025; 96365; 96367; 96375; 96376; 99284; G0378; J2405

== ENCOUNTER 2018-09-24 09:51 | Outpatient (CLI) | payer OTHER, SELFPAY ==
[2018-09-24 10:00] VITALS: BMI 18.6
[2018-09-24 10:19] LABS: Amphetamine/Metha Screen,Urine Negative ng/mL (<1000); Barbiturates Screen,Urine Negative ng/mL (<200); Benzodiazepines Screen,Urine Negative ng/mL (<200); Cannabinoid Screen,Urine Negative ng/mL (<50); Cocaine Screen,Urine Negative ng/mL (<300); Methadone Screen,Urine Negative ng/mL (<300); Opiate Screen,Urine Negative ng/mL (<300); Phencyclidine Screen,Urine Negative ng/mL (<25)
== END 2018-09-24 10:24 | disposition home or self-care (01) ==
PROVIDERS: PCP Nurse Practitioner Family; Visit Provider Physician Assistant
DX: Z02.83 Encounter for blood-alcohol and blood-drug test (principal)
CPT/HCPCS: 80305